=== PATIENT | female | born 1990 | race Caucasian/White ===

== ENCOUNTER 2016-11-18 17:31 | Emergency (ER) | payer OTHER ==
[~2016-11-18] VITALS: Ht 152.4 cm; Wt 55.0 kg
[~2016-11-18 17:31] MED LIST: NITR-58 PO; PHEN95TA29 PO
[2016-11-18 17:37] VITALS: Ht 152.4 cm; Wt 55.0 kg
[2016-11-18] MEDS ORDERED: BELLADONNA/PHENOBARBITAL TAB PO STA (17:54)
[2016-11-18] MEDS ORDERED: FAMOTIDINE 20 MG TAB PO STA (17:54)
[2016-11-18] MEDS ORDERED: LIDOCAINE/MYLANTA 40 ML BTL PO STA (17:54)
[2016-11-18] MEDS ORDERED: OXYCODONE/ACETAMINOPHEN (5/325) TAB PO ONE (18:00)
[2016-11-18] MEDS ORDERED: FAMO40TA52 PO (18:02)
[2016-11-18] MEDS ORDERED: OMEP40CA6 PO (18:02)
[2016-11-18] MEDS ORDERED: MAG355OR14 PO (18:02)
[2016-11-18 18:35] LABS: ADD UMIC YES; URINE BILIRUBIN (Dip) NEGATIVE (NEGATIVE); URINE BLOOD (Dip) NEGATIVE (NEGATIVE); URINE COLOR LT. YELLOW (YELLOW); URINE GLUCOSE (Dip) NEGATIVE (NEGATIVE); URINE KETONES (Dip) NEGATIVE (NEGATIVE); URINE LEUKOCYTE ESTERASE (Dip) TRACE (NEGATIVE); URINE NITRITE (Dip) NEGATIVE (NEGATIVE); URINE TOTAL PROTEIN (Dip) TRACE (NEGATIVE); URINE UROBILINOGEN (Dip) 0.2 E.U./dL (0.1-1.0)
[2016-11-18 19:04] LABS: BACTERIA,URINE FEW; SQUAMOUS EPITHELIAL CELL,UR MANY; URINE RBCS NONE SEEN /HPF (0)
--- NOTE | 2016-11-18 19:08 | ERD ---
ER Documentation Chief Complaint Date/Time DATE: 11/18/16 TIME: 19:08 Chief Complaint EPIGATRIC PAIN X 2 WEEKS HPI 26 otherwise healthy young woman presents with burning epigastric pain 2 weeks. She states pain precipitated by p.o. intake and radiates up to her throat. She denies fevers or chills, no dysuria, no chest pain or shortness of breath, no vomiting or diarrhea. Patient states she has a remote history of gastritis although denies using any medications at this time for her symptoms. ROS All systems reviewed and are negative except as per history of present illness. Medications Home Meds Active Scripts Omeprazole* (Omeprazole*) 40 Mg Capsule.dr, 40 MG PO DAILY, #30 CAP Prov:VANESSA RENO MD 11/18/16 Famotidine* (Famotidine*) 40 Mg Tablet, 40 MG PO HS, #30 TAB Prov:VANESSA RENO MD 11/18/16 Mag Hydrox/Al Hydrox/Simeth (Maalox Advanced Suspension) 355 Ml Oral.susp, 2 TSP PO TID for PAIN, #24 OZ Prov:VANESSA RENO MD 11/18/16 Phenazopyridine Hcl* (AZO*) 95 Mg Tablet, 95 MG PO TID, #20 TAB Prov:FAIZAN SPICER PA-C 12/13/15 Nitrofurantoin Monohyd Macrocr* (Macrobid*) 100 Mg Capsr, 100 MG PO BID for 7 Days, CAP Prov:FAIZAN SPICER PA-C 12/13/15 Allergies Allergies: Coded Allergies: No Known Allergy (Unverified , 05/27/14) PMhx/Soc Gastritis History of Surgery: Yes (APPENDECTOMY) Anesthesia Reaction: No Hx Neurological Disorder: No Hx Respiratory Disorders: No Hx Cardiac Disorders: No Hx Psychiatric Problems: No Hx Miscellaneous Medical Probl: No Hx Alcohol Use: Yes (SOCIALLY) Hx Substance Use: No Hx Tobacco Use: No Smoking Status: Never smoker FmHx Family History: No diabetes Physical Exam Vitals Vital Signs Date Time Temp Pulse Resp B/P Pulse Ox O2 Delivery O2 Flow Rate FiO2 11/18/16 17:37 97.9 71 18 137/83 99 Physical Exam GENERAL: Well-developed, well-nourished, well-hydrated, in no apparent distress , looks nontoxic in appearance HEENT: Moist mucous membranes, pink conjunctiva, no cervical spine tenderness or step-off deformities, no goiter, no jaundice or icterus, extraocular movements intact without pain. No submandibular induration, and no pharyngeal erythema NEURO: Alert and oriented 3, cranial nerves II through XII intact bilaterally, pupils equal round reactive to light, no focal deficits or facial asymmetry, sensation intact distally Strength 5/5 in upper and lower extremities bilaterally CARDIAC: Regular rate and rhythm, no murmurs rubs or gallops LUNGS: Clear bilaterally no wheezing crackles or stridor ABDOMEN: Soft nontender, no guarding, no rigidity, no rebound, no psoas sign no obturator sign. Normoactive bowel sounds SKIN: Warm and dry to touch, no abrasions, contusions, or hematomas, no lacerations, no ecchymosis, no target lesions, and without ulcers EXTREMITIES: No clubbing cyanosis or edema, calves are bilaterally symmetrical, no Homans sign, no popliteal cord sign. Distal pulses equal and bilateral PSYCH: Normal affect without agitation or irritability Results 24 hrs Laboratory Tests Test 11/18/16 18:00 Urine Color LT. YELLOW Urine Clarity SLIGHTLY CLOUDY Urine pH 8.5 Urine Specific [place] 1.015 Urine Ketones NEGATIVE Urine Nitrite NEGATIVE Urine Bilirubin NEGATIVE Urine Urobilinogen 0.2 E.U./dL Urine Leukocyte Esterase TRACE Urine Microscopic RBC NONE SEEN/HPF Urine Microscopic WBC >50/HPF Urine Squamous Epithelial Cells MANY Urine Bacteria FEW Urine Hemoglobin NEGATIVE Urine Glucose NEGATIVE% Urine Total Protein TRACE Current Medications Medications (Trade) Dose Ordered Sig/Inga Route PRN Reason Start Time Stop Time Status Last Admin Dose Admin Famotidine (Pepcid) 40 mg ONCE STAT PO 11/18/16 17:54 11/18/16 17:55 DC 11/18/16 18:12 Miscellaneous Medication (Gi Cocktail (2)) 40 ml ONCE STAT PO 11/18/16 17:54 11/18/16 17:55 DC 11/18/16 18:00 [place]/ Phenobarbital () 2 tab ONCE STAT PO 11/18/16 17:54 11/18/16 17:55 DC 11/18/16 18:12 Oxycodone/ Acetaminophen (Percocet (5/ 325)) 1 tab ONCE ONCE PO 11/18/16 18:00 11/18/16 18:01 DC 11/18/16 18:14 Procedures/MDM I administered Percocet 1 tablet p.o., GI cocktail 50 cc p.o., famotidine 40 mg p.o. with good response. test was negative and urine analysis was concerning for urinary tract infection. Differential diagnoses considered, included but not limited to acute coronary syndrome, pulmonary embolism, aortic dissection, abdominal aortic aneurysm, sepsis, stroke, meningitis, encephalitis, pneumonia, appendicitis, cholecystitis , bowel obstruction, pyelonephritis, nephrolithiasis, cystitis, as well as metabolic, hematologic, and electrolyte abnormalities. As well as abscess, cellulitis, fractures, and dislocations. Patient feels much better at this time, and vital signs are normal, symptoms have improved. I did give strict instructions to return to the ED if symptoms continue or worsen, patient will otherwise follow-up with primary care physician. Patient understood instructions and agreed to plan. Departure Diagnosis: Primary Impression: Gastritis Gastritis type: superficial Chronicity: acute Gastritis bleeding: without bleeding Qualified Code: K29.00 - Acute superficial gastritis without hemorrhage Additional Impression: UTI (urinary tract infection) Urinary tract infection type: acute cystitis Hematuria presence: without hematuria Qualified Code: N30.00 - Acute cystitis without hematuria Condition: Good Patient Instructions: Gastritis Vs. Ulcer Referrals: MARISOL BLAIR MD, DAVID MD Nov 18, 2016 19:08
== END 2016-11-18 19:23 | disposition home or self-care (01) ==
LOC: FTE 17:31
DX: K29.00 Acute gastritis without bleeding (principal); N30.00 Acute cystitis without hematuria
CPT/HCPCS: 36415; 81001; 81003; Z7502; Z7610; 99283

== ENCOUNTER 2017-03-05 17:37 | Emergency (ER) | payer OTHER ==
[~2017-03-05] VITALS: Wt 59.1 kg
[~2017-03-05 17:37] MED LIST changes: +FAMO40TA52 PO; +MAG355OR14 PO; +OMEP40CA6 PO
[2017-03-05] MEDS ORDERED: KETOROLAC 30 MG INJ IM STA (18:21)
[2017-03-05] MEDS ORDERED: HYDROCODONE/APAP (5/325) TAB PO ONE (18:30)
[2017-03-05 18:42] LABS: URINE BLOOD (Dip) POC Negative (NEGATIVE)
[2017-03-05] MEDS ORDERED: CYCL-319 PO (18:49)
[2017-03-05] MEDS ORDERED: IBUP-1542 PO (18:49)
--- NOTE | 2017-03-05 18:57 | ERD ---
ER Documentation Chief Complaint Date/Time DATE: 03/05/17 TIME: 18:52 Chief Complaint back pain HPI Patient is a 26-year-old female who presents to the emergency department for concerns of lower back pain which started 2 days ago. Patient states she was lifting heavy weights at the gym or to the start of her back pain. Pain is localized to the lumbar region does not radiate. Patient denies any falls or trauma. Patient denies any saddle anesthesia, urinary incontinence, stool incontinence, fevers, chills, recent history of cancer, dysuria, frequency, hematuria or flank pain. Patient reports taking ibuprofen with some alleviation of symptoms. Patient states her last menstrual period was on February 08, 2017. ROS All systems reviewed and are negative except as per history of present illness. Medications Home Meds Active Scripts Cyclobenzaprine Hcl* (Cyclobenzaprine Hcl*) 10 Mg Tablet, 10 MG PO TID, #15 TAB Prov:KEIRY FAITH PA-C 03/05/17 Ibuprofen* (Motrin*) 600 Mg Tab, 600 MG PO Q6, #20 TAB Prov:KEIRY FAITH PA-C 03/05/17 Omeprazole* (Omeprazole*) 40 Mg Capsule.dr, 40 MG PO DAILY, #30 CAP Prov:VANESSA RENO MD 11/18/16 Famotidine* (Famotidine*) 40 Mg Tablet, 40 MG PO HS, #30 TAB Prov:VANESSA RENO MD 11/18/16 Mag Hydrox/Al Hydrox/Simeth (Maalox Advanced Suspension) 355 Ml Oral.susp, 2 TSP PO TID for PAIN, #24 OZ Prov:VANESSA RENO MD 11/18/16 Phenazopyridine Hcl* (AZO*) 95 Mg Tablet, 95 MG PO TID, #20 TAB Prov:FAIZAN SPICER PA-C 12/13/15 Nitrofurantoin Monohyd Macrocr* (Macrobid*) 100 Mg Capsr, 100 MG PO BID for 7 Days, CAP Prov:FAIZAN SPICER PA-C 12/13/15 Allergies Allergies: Coded Allergies: No Known Allergy (Unverified , 05/27/14) PMhx/Soc Medical and Surgical Hx: pt denies Medical Hx History of Surgery: Yes (appendectomy) Anesthesia Reaction: No Hx Neurological Disorder: No Hx Respiratory Disorders: No Hx Cardiac Disorders: No Hx Psychiatric Problems: No Hx Miscellaneous Medical Probl: No Hx Alcohol Use: No Hx Substance Use: No Hx Tobacco Use: No Smoking Status: Never smoker FmHx Family History: No diabetes Physical Exam Vitals Vital Signs Date Time Temp Pulse Resp B/P Pulse Ox O2 Delivery O2 Flow Rate FiO2 03/05/17 19:06 98.7 74 20 138/70 100 Room Air 03/05/17 18:01 99.0 79 20 142/72 100 Physical Exam GENERAL: Well-developed, well-nourished female. Appears in pain. HEAD: Normocephalic, atraumatic. EYES: Pupils are equally reactive bilaterally. EOMs grossly intact. No conjunctival erythema. ENT: Moist mucous membranes. No uvula deviation. No kissing tonsils. NECK: Supple. No meningismus. Normal range of motion of the neck. LUNG: Clear to auscultation bilaterally. No rhonchi, wheezing, rales or coarse breath sounds. HEART: Regular rate and rhythm. No murmurs, rubs or gallops. BACK: No midline tenderness. Tender to palpation of bilateral lumbar paraspinalis muscle regions. Positive straight leg raise bilaterally. EXTREMITIES: Equal pulses bilaterally. No peripheral clubbing, cyanosis or edema. No unilateral leg swelling. NEUROLOGIC: Alert and oriented. Moving all four extremities without any difficulty. Normal speech. Steady gait. SKIN: Normal color. Warm and dry. No rashes or lesions. Results 24 hrs Laboratory Tests Test 03/05/17 18:47 Bedside Urine pH (LAB) 6.0 Bedside Urine Protein (LAB) Negative Bedside Urine Glucose (UA) Negative Bedside Urine Ketones (LAB) Negative Bedside Urine Blood Negative Bedside Urine Nitrite (LAB) Negative Bedside Urine Leukocyte Esterase (L Trace Current Medications Medications (Trade) Dose Ordered Sig/Inga Route PRN Reason Start Time Stop Time Status Last Admin Dose Admin Ketorolac Tromethamine (Toradol) 30 mg ONCE STAT IM 03/05/17 18:21 03/05/17 18:23 DC 03/05/17 18:47 Acetaminophen/ Hydrocodone Bitart ([place] (5/325)) 1 tab ONCE ONCE PO 03/05/17 18:30 03/05/17 18:31 DC 03/05/17 18:47 Procedures/MDM MEDICAL DECISION MAKING: This is a 26-year-old female who presents to the emergency department with lower back pain 2 days. Pain started after lifting heavy weights at the gym. Patient denies any trauma or falls. Vital signs were reviewed. Patient was afebrile. Patient denied any saddle anesthesia, urinary incontinence, bowel incontinence. Patient denies any fevers. Given the patient denied any falls or trauma, did not feel that x-ray imaging is indicated at this time. Urine test was negative. Urine dip showed trace leukocyte esterase. Given that patient denied any symptoms of dysuria, frequency, urgency or hematuria, I do not believe the patient has a UTI at this time. Given these findings, the patient's presentation is most consistent with lumbar strain. I have a much lower clinical concern for cauda equine syndrome, spinal fractures, epidural abscess, spinal metastases, osteomyelitis, aortic dissection, ruptured or leaking AA, DJD, muscle spasm, pyelonephritis or nephrolithiasis. PRESCRIPTIONS: Ibuprofen Flexeril, Patient was advised not to take this medication when operating any machinery or driving. DISCHARGE: At this time, patient is stable for discharge and outpatient management. RICE therapy and ROM exercises were advised to avoid stiffness. I have instructed the patient to follow-up with his/her primary care physician in 1-2 days. I have discussed with the patient the possibility of needing to see an [facility] specialist for further workup and imaging if the pain persists. I have instructed the patient to promptly return to the ER for any new or worsening symptoms including increased pain, swelling, warmth, urinary incontinence, stool incontinence, weakness or numbness. The patient and/or family expressed understanding of and agreement with this plan. All questions were answered. Home care instructions were provided. Patient's blood pressure was elevated (>120/80) but appears stable without evidence of hypertensive emergency, hypertensive urgency or end-organ failure. I had discussion with the patient about the risks of hypertension. I have advised the patient to follow up with his/her primary care physician for outpatient monitoring and treatment for hypertension in 2-3 days. I have instructed the patient to return to the ER for any new or worsening symptoms including chest pain, shortness of breath, headache, blurred vision, confusion, nausea, vomiting or LOC. Departure Diagnosis: Primary Impression: Back pain Back pain location: back pain in unspecified location Chronicity: unspecified Back pain laterality: bilateral Qualified Code: M54.9 - Bilateral back pain, unspecified back location, unspecified chronicity Condition: Stable Patient Instructions: Back Pain (Acute Or Chronic) Referrals: RODO MADRID (PCP) Additional Instructions: Call your primary care doctor TOMORROW for an appointment during the next 1-2 days.See the doctor sooner or return here if your condition worsens before your appointment time. Do not take Flexeril when operating any machinery or driving. KEIRY FAITH PA-C Mar 05, 2017 18:57
[2017-03-05 19:06] VITALS: BP 138/70; PULSE 74; RESP 20; TEMP 98.7
[2017-03-14 16:16] LABS: URINE BLOOD (Dip) POC Negative (NEGATIVE)
== END 2017-03-05 19:07 | disposition home or self-care (01) ==
LOC: FTE 17:37
DX: M54.5 Low back pain (principal)
CPT/HCPCS: 81003; J1885; Z7610; 96372

== ENCOUNTER 2017-10-30 14:47 | Emergency (ER) | END 2017-10-30 18:10 | disposition home or self-care (01) ==

== ENCOUNTER 2018-02-13 22:52 | Outpatient (CLI) | END 2018-02-14 06:54 | disposition home or self-care (01) ==

== ENCOUNTER 2018-02-16 09:22 | Outpatient (CLI) | END 2018-02-16 11:55 | disposition home or self-care (01) ==

== ENCOUNTER 2018-03-04 00:06 | Inpatient (IN) | END 2018-03-04 23:43 | disposition home or self-care (01) | DRG 782 ==

== ENCOUNTER 2018-04-02 18:13 | Outpatient (CLI) | END 2018-04-02 19:48 | disposition home or self-care (01) ==

== ENCOUNTER 2018-04-04 10:33 | Outpatient (CLI) | END 2018-04-04 14:10 | disposition home or self-care (01) ==

== ENCOUNTER 2018-04-06 17:30 | Outpatient (CLI) | END 2018-04-06 18:50 | disposition home or self-care (01) ==

== ENCOUNTER 2018-04-14 06:32 | Inpatient (IN) | END 2018-04-17 16:00 | disposition home or self-care (01) | DRG 775 ==

== ENCOUNTER 2018-08-24 05:15 | Emergency (ER) | payer MEDICAID ==
[~2018-08-24] VITALS: Ht 160 cm; Wt 66.5 kg
[~2018-08-24 05:15] MED LIST changes: -FAMO40TA52 PO; +FER325 PO; -MAG355OR14 PO; -NITR-58 PO; -OMEP40CA6 PO; -PHEN95TA29 PO; +PREN1TAB17 PO
[2018-08-24 05:16] VITALS: Ht 160 cm; Wt 66.5 kg
[2018-08-24] MEDS ORDERED: SOD CHLORIDE 0.9% 1,000 ML IV STA (06:18)
[2018-08-24] MEDS ORDERED: morphine 2 MG INJ IV STA (06:18)
[2018-08-24] MEDS ORDERED: ONDANSETRON 4 MG INJ IV STA (06:18)
[2018-08-24] MEDS ORDERED: CEPH-443 PO (07:59)
[2018-08-24] MEDS ORDERED: IBUP-1542 PO (07:59)
[2018-08-24 08:23] VITALS: BP 115/72; PULSE 60; RESP 18
--- NOTE | 2018-08-24 09:08 | ERD ---
ER Documentation Chief Complaint Chief Complaint left abdominal pain x 2 hours HPI This is a 27-year-old female with a nonsignificant past medical history presents ED with complaints of left lower pelvic pain times 2 hours prior to arrival in ED. Patient states the pain is constant but it waxes and wanes in severity. Patient rates pain at its worst at an 8 out of 10. Patient's last menstrual period was 12-13-18. Denies nausea, vomiting, hemoptysis, diarrhea, constipation, melena, hematochezia, rectal pain, pain with bowel movement, vaginal pain, vaginal bleeding, fever, chills, dysuria, hematuria, back pain and all other symptoms. No known drug allergies. History of having an appendectomy. ROS All systems reviewed and are negative except as per history of present illness. Medications Home Meds Active Scripts Ibuprofen* (Motrin*) 600 Mg Tab, 600 MG PO Q6, #30 TAB Prov:CARLOS JACKMAN PA-C 08/24/18 Cephalexin* (Keflex*) 500 Mg Capsule, 500 MG PO QID for 7 Days, CAP Prov:CARLOS JACKMAN PA-C 08/24/18 Reported Medications Vit-Iron Fumarate-FA ( Tablet) 1 Each Tablet, 1 TAB PO DAILY, TAB 10/30/17 Ferrous Sulfate* (Ferrous Sulfate*) 325 Mg Tabec, 325 MG PO DAILY, TAB 10/30/17 Allergies Allergies: Coded Allergies: No Known Allergy (Unverified , 08/24/18) PMhx/Soc History of Surgery: Yes (appendectomy) Anesthesia Reaction: No Hx Neurological Disorder: No Hx Respiratory Disorders: No Hx Cardiac Disorders: No Hx Psychiatric Problems: No Hx Miscellaneous Medical Probl: No Hx Alcohol Use: No Hx Substance Use: No Hx Tobacco Use: No Smoking Status: Never smoker FmHx Family History: No diabetes Physical Exam Vitals Vital Signs Date Temp Pulse Resp B/P (MAP) Pulse Ox O2 O2 Flow FiO2 Time Delivery Rate 08/24/18 98.1 60 18 115/72 99 Room Air 08:23 (86) 08/24/18 98.1 77 18 127/78 99 05:16 (94) Physical Exam Physical Exam Vitals signs: Reviewed by me. General: Well developed, well nourished, in no acute distress. Patient is awake and alert. Head: Normocephalic, atraumatic. Eyes: Normal conjunctiva, Pupils PERRLA, EOM intact grossly ENT: Pharynx is clear, Moist mucous membranes, external ears, nose and mouth normal Neck: Supple, no masses, lymphadenopathy or JVD Respiratory: Clear to auscultation bilaterally with no wheezing, rhonchi, rales, no distress Cardiovascular: RRR, no murmurs, rubs, or gallops Abdominal: Soft, nondistended, no peritoneal signs, no rigidity, no surgical abdomen, bowel sounds present all 4 quadrants, mild tenderness palpation in the left lower quadrant, nontender in all other quadrants, Bhandari sign negative, McBurney's point nontender, read no rebound tenderness : Deferred MSK: No edema, Back: No midline tenderness. No flank tenderness Neurologic: Alert and oriented, moving all extremities, normal speech, no focal weakness, no cerebellar signs. Normal mentation Skin: warm and dry, No rash Psych: Normal mood Result Diagram: 08/24/18 0640 08/24/18 0640 Results 24 hrs Laboratory Tests Test 08/24/18 06:37 08/24/18 06:40 POC Beta HCG, Qualitative NEGATIVE White Blood Count 8.1 10^3/ul Red Blood Count 4.43 10^6/ul Hemoglobin 13.4 g/dl Hematocrit 39.4 % Mean Corpuscular Volume 88.9 fl Mean Corpuscular Hemoglobin 30.2 pg Mean Corpuscular Hemoglobin Concent 34.0 g/dl Red Cell Distribution Width 12.8 % Platelet Count 281 10^3/UL Mean Platelet Volume 10.7 fl Immature Granulocytes % 0.500 % Neutrophils % 72.3 % Lymphocytes % 20.4 % Monocytes % 5.7 % Eosinophils % 0.7 % Basophils % 0.4 % Nucleated Red Blood Cells % 0.0 /100WBC Immature Granulocytes # 0.040 10^3/ul Neutrophils # 5.8 10^3/ul Lymphocytes # 1.7 10^3/ul Monocytes # 0.5 10^3/ul Eosinophils # 0.1 10^3/ul Basophils # 0.0 10^3/ul Nucleated Red Blood Cells # 0.0 10^3/ul Urine Color YELLOW Urine Clarity CLOUDY Urine pH 6.0 Urine Specific [place] 1.006 Urine Ketones NEGATIVE mg/dL Urine Nitrite NEGATIVE mg/dL Urine Bilirubin NEGATIVE mg/dL Urine Urobilinogen NEGATIVE mg/dL Urine Leukocyte Esterase 3+ Cordelia/ul Urine Microscopic RBC 8 /HPF Urine Microscopic WBC 15 /HPF Urine Squamous Epithelial Cells MODERATE /HPF Urine Bacteria FEW /HPF Urine Hemoglobin 1+ mg/dL Urine Glucose NEGATIVE mg/dL Urine Total Protein NEGATIVE mg/dl Sodium Level 142 mmol/L Potassium Level 3.7 mmol/L Chloride Level 106 mmol/L Carbon Dioxide Level 26 mmol/L Anion Gap 10 Blood Urea Nitrogen 11 mg/dl Creatinine 0.63 mg/dl Est Glomerular Filtrat Rate mL/min > 60 mL/min Glucose Level 96 mg/dl Calcium Level 9.6 mg/dl Total Bilirubin 0.3 mg/dl Direct Bilirubin 0.00 mg/dl Indirect Bilirubin 0.3 mg/dl Aspartate Amino Transf (AST/SGOT) 23 IU/L Alanine Aminotransferase (ALT/SGPT) 14 IU/L Alkaline Phosphatase 53 IU/L Total Protein 8.8 g/dl Albumin 4.8 g/dl Globulin 4.00 g/dl Albumin/Globulin Ratio 1.20 Lipase 53 U/L Current Medications Medications Dose Sig/Inga Start Time Status Last (Trade) Ordered Route PRN Stop Time Admin Dose Reason Admin Sodium 1,000 ml @ Q1H STAT 08/24/18 DC 08/24/18 Chloride 1,000 mls/hr IV 06:18 08/24/18 06:41 07:17 Morphine 6 mg ONCE STAT 08/24/18 DC 08/24/18 Sulfate IV 06:18 08/24/18 06:41 (morphine) 06:22 Ondansetron 4 mg ONCE STAT 08/24/18 DC 08/24/18 HCl (Zofran IV 06:18 08/24/18 06:41 Inj) 06:22 Procedures/MDM EKG, MONITORS, & DIAGNOSTIC IMAGING: [place] [address] Radiology Main Line: [phone] DIAGNOSTIC IMAGING REPORT Patient: MORGAN SIMS : 1990 Age: 27 Sex: F MR #: [id number] DOS: 08/24/18617 Ordering MD: CARLOS JACKMAN PA-C Location: [facility] Room/Bed: PROCEDURE: CT Abdomen and pelvis without contrast. CLINICAL INDICATION: Abdominal pain TECHNIQUE: CT scan of the abdomen and pelvis without contrast was performed on a multidetector high-resolution CT scan. . Coronal and sagittal reformatted images were obtained from the axial source images. Standard CT scan of the abdomen pelvis without contrast protocols were performed. The total exam CTDI equals 9.01 mGy and the total exam DLP equals 516.37 mGy-cm. One or more of the following dose reduction techniques were used: - Automated exposure control. - Adjustment of the mA and/or kV according to patient size. Use of iterative reconstruction technique. Dicom images are available COMPARISON: Pelvic ultrasound same day FINDINGS: There is a small amount of free fluid in the cul-de-sac. No other intra- abdominal free fluid free air or abscess. No abdominal pelvic lymphadenopathy. Questionable circumferential wall thickening of the distal rectum may be due to lack of optimal distension however a proctitis cannot be totally excluded. Moderate stool burden throughout the colon which is otherwise unremarkable. No evidence of diverticulitis. A definite appendix is not visualized however no CT evidence of appendicitis. Stomach and small bowel unremarkable. Kidneys are normal in size without calcified calculi, hydronephrosis or intra renal masses bilaterally. No ureteral calcified calculi or dilatation. Urinary bladder appears unremarkable. Uterus appears anteverted and globular in mariana earance but no definite focal lesion demonstrated. Pelvic ultrasound demonstrated a 1.3 cm left ovarian cyst. No other adnexal masses. Liver spleen pancreas adrenal glands and gallbladder unremarkable. No evidence biliary ductal dilation. Mild bibasilar subsegmental atelectasis. Aorta unremarkable. Abdominal pelvic wall unremarkable. Osseous structures unremarkable without acute osseous findin gs are osteoblastic/osteolytic lesions. IMPRESSION: 1. Questionable circumferential wall thickening of the distal rectum may be due to lack of optimal distension however proctitis cannot be excluded. Moderate stool burden throughout the colon. Colon is otherwise unremarkable. 2. Appendix not visualized however no CT evidence of appendicitis. 3. No calcified urinary calculi or obstructive uropathy. 4. Globular prominent uterus but no definite focal lesion demonstrated. Low density in the left adnexa consistent with 1.3 cm left ovarian cyst demonstrated on pelvic ultrasound same day. 5. Small free fluid in the cul-de-sac. No abscess free air or lymphadenopathy. RPTAT:AAJJ Physician Irma Date Time Electronically viewed and signed by Physician Irma on 08/24/2018 07:40 BM/ CC: CARLOS JACKMAN PA-C [id number] [place] [address] Radiology Main Line: [phone] DIAGNOSTIC IMAGING REPORT Patient: MORGAN SIMS : 1990 Age: 27 Sex: F MR #: [id number] DOS: 08/24/18 0618 Ordering MD: CARLOS JACKMAN PA-C Location: [facility] Room/Bed: PROCEDURE: Pelvic ultrasound color-flow Doppler of the adnexa. CLINICAL INDICATION: Pelvic Pain (Non ) rule out torsion, abscess TECHNIQUE: Multiple sagittal, oblique and transverse real time images were obtained of the lower abdomen and pelvis using a transabdominal as well a transvaginal approach. Color-flow Doppler of the adnexa was performed. COMPARISON: None. FINDINGS: The uterus is normal limits in size measuring 7.67 x 6.17 x 5.31 cm. Myometrial echoes are heterogeneous however no definite focal lesions demonstrated. Diffuse thickened homogeneous endometrium a without focal lesion maximal AP diameter 2.41 cm. Findings may all represent menstrual changes. Recommend clinical correlation. The ovaries are normal in size with the right measuring 2.38 x 1.60 x 1.73 cm and the left measuring 3.38 x 2.76 x 2.29 cm. Within the left ovary is a 1.33 cm cyst. No other ovarian masses. There is flow to both ovaries without ultrasonic evidence of ovarian torsion. Small free fluid in the cul-de-sac. No adnexal masses. IMPRESSION: 1. Normal size ovaries without ultrasonic evidence of ovarian torsion. 2. Left ovarian 1.33 cm cyst. 3. Small free fluid in the cul-de-sac. 4. Normal size uterus with heterogeneous myometrial echoes but no definite focal lesion. Diffuse thickened homogeneous endometrium maximal AP diameter 2.4 cm may all represent menstrual changes. Recommend clinical correlation follow-up as clinically indicated. RPTAT:AAJJ Physician Irma Date Time Electronically viewed and signed by Physician Irma on 08/24/2018 07:42 BM/ CC: CARLOS JACKMAN PA-C [id number] LAB INTERPRETATION: CBC shows no evidence of hemorrhage or infection Chemistry shows no evidence of significant electrolyte abnormalities or renal insufficiency Liver function test shows no evidence of acute biliary or hepatic dysfunction Lipase shows no evidence of acute pancreatitis Urine negative Urinalysis remarkable for leukocyte esterase 3 +, microscopic RBC, microscopic WBC ER COURSE: The patient was given IV normal saline, morphine, Zofran The medication was well tolerated and the patient reports improvement in symptoms. The patient was stable throughout ED course. I kept the patient and/or family informed of laboratory and diagnostic imaging results throughout the emergency room course. The patient was promptly evaluated and a treatment plan was devised based on H&P and other data. This plan was discussed with the patient who agreed and had no further questions or concerns prior to discharge. MEDICAL DECISION MAKING: Non- woman presenting with abdominal pain. test is negative. Considered causes of female-specific abdominal pain including pelvic inflammatory disease, tubo-ovarian abscess, Bljt-Zzhl-Inygey, and ovarian torsion. Also considered causes of abdominal pain that are not gender-specific (e.g., appendicitis, volvulus, small bowel obstruction, mesenteric adenitis, acute cholecystitis/choledocholithiasis and other biliary pathology, etc.). Patient well-appearing with normal vital signs. No peritoneal signs and abdomen benign on multiple repeat examinations. Pt well hydrated. Patient's urinalysis is remarkable for leukocyte Estrace 3+, RBC and WBC. It is possible that the patient's lower pelvic discomfort could be due to a UTI. Will treat patient for UTI. The CT of the abdomen and pelvis shows some constipation as well as a left ovarian cyst. it is also possible that patient's lower pelvic discomfort could be due to a ovarian cyst. Ultrasound of the abdomen and pelvis also shows a left ovarian cyst and some small free fluid in the cul-de-sac. The uterus also appears to have menstrual changes and patient is about to start menses. I believe the patient's left lower pelvic discomfort is due to ovarian cyst and UTI. At this time there is no evidence of gastrointestinal or genitourinary emergency. No evidence of appendicitis, cholecystitis, small bowel obstruction, perforated viscus, tubo-ovarian abscess, ovarian torsion, ectopic , PID, obstructive pyelonephritis, sepsis, and others. Patient given strict return precautions for worsening pain, inability to eat/drink, fevers (temperature over 100.4F), or other concerns. Prior to discharge all questions answered. She agrees with treatment plan and understands strict return precautions. Follow-up for repeat abdominal exam within 12 hours. DISPOSITION PLAN: We discussed follow up with the patient's primary care doctor within 24 to 48 hours. Patient counseled regarding my diagnostic impression and care plan. Prior to discharge all questions answered. Pt agrees with treatment plan and understands strict return precautions. Precautionary instructions provided including instructions to return to the ER if not improving or for any worsening or changing symptoms or concerns. SPECIALIST FOLLOW UP RECOMMENDED: None Patient has been advised to follow up with primary care in 1-2 days. Disclaimer: Inadvertent spelling and grammatical errors are likely due to EHR/dictation software use and do not reflect on the overall quality of patient care. Also, please note that the electronic time recorded on this note does not necessarily reflect the actual time of the patient encounter. Departure Diagnosis: Primary Impression: UTI (urinary tract infection) Urinary tract infection type: site unspecified Hematuria presence: without hematuria Qualified Codes: N39.0 - Urinary tract infection, site not specified Additional Impressions: Pelvic pain Left ovarian cyst Condition: Stable Patient Instructions: What Are Ovarian Cysts?, Understanding Urinary Tract Infections (UTIs), Pelvic Pain, Unknown Cause, Mid-Cycle Pain (Mittelschmerz) Additional Instructions: Patient advised to return to the ED immediately for new or worsening symptoms. Patient advised to follow up with primary care provider in the next 24-48 hours. Patient verbalized understanding and agrees with treatment plan and course of action. If patient has no primary care they may follow up with one of the community clinics listed on the following page or one of the options listed below [facility] + [facility] [address] [place] [id number] or [facility] [address] [place] [address] or [facility] [address] [place] [address] CARLOS JACKMAN PA-C Aug 24, 2018 09:08
== END 2018-08-24 08:25 | disposition home or self-care (01) ==
LOC: FTE 05:15
DX: N39.0 Urinary tract infection, site not specified (principal); N83.202 Unspecified ovarian cyst, left side; R10.2 Pelvic and perineal pain
CPT/HCPCS: 36415; 74176; 76830; 76856; 80053; 81001; 81025; 83690; 85025; 96361; 96374; 96375; J2270; J2405; J7030; Z7502

== ENCOUNTER 2018-09-04 10:22 | Emergency (ER) | payer MEDICAID ==
[~2018-09-04] VITALS: Ht 160 cm; Wt 64.5 kg
[~2018-09-04 10:22] MED LIST changes: +CEPH-443 PO; +IBUP-1542 PO
[2018-09-04 10:24] VITALS: Ht 160 cm; Wt 64.5 kg
[2018-09-04] MEDS ORDERED: KETOROLAC 30 MG INJ IV STA (11:15)
[2018-09-04] MEDS ORDERED: SOD CHLORIDE 0.9% 1,000 ML IV STA (11:15)
[2018-09-04] MEDS ORDERED: ONDANSETRON 4 MG INJ IV STA (11:15)
[2018-09-04] MEDS ORDERED: CIPR500T4 PO (12:46)
[2018-09-04] MEDS ORDERED: HYDR-4011 PO (12:46)
--- NOTE | 2018-09-04 14:28 | ERD ---
ER Documentation Chief Complaint Chief Complaint pt is bib family with c/o lower abd pain, dx with ovarian cyst PMD not avai HPI 27-year-old female presenting with lower abdominal pain. Patient states she was here 2 weeks ago discharged with ibuprofen and told she had ovarian cyst. Patient states the pain is persisted. Denies other medical problems. Denies vomiting. Denies fever. Denies back pain. NKDA. Surgical history is appendectomy. Social history denies ROS All systems reviewed and are negative except as per history of present illness. Medications Home Meds Active Scripts Hydrocodone/Acetaminophen ([place] 5-325 Tablet) 1 Each Tablet, 1 TAB PO Q6H PRN for PAIN, #7 TAB Prov:ROSELYN ALCANTAR PA-C 09/04/18 Ciprofloxacin Hcl* (Ciprofloxacin Hcl*) 500 Mg Tablet, 500 MG PO BID for 7 Days, TAB Prov:ROSELYN ALCANTAR PA-C 09/04/18 Ibuprofen* (Motrin*) 600 Mg Tab, 600 MG PO Q6, #30 TAB Prov:CARLOS JACKMAN PA-C 08/24/18 Cephalexin* (Keflex*) 500 Mg Capsule, 500 MG PO QID for 7 Days, CAP Prov:CARLOS JACKMAN PA-C 08/24/18 Reported Medications Vit-Iron Fumarate-FA ( Tablet) 1 Each Tablet, 1 TAB PO DAILY, TAB 10/30/17 Ferrous Sulfate* (Ferrous Sulfate*) 325 Mg Tabec, 325 MG PO DAILY, TAB 10/30/17 Allergies Allergies: Coded Allergies: No Known Allergy (Unverified , 08/24/18) PMhx/Soc History of Surgery: Yes (appendectomy) Anesthesia Reaction: No Hx Neurological Disorder: No Hx Respiratory Disorders: No Hx Cardiac Disorders: No Hx Psychiatric Problems: No Hx Miscellaneous Medical Probl: No Hx Alcohol Use: No Hx Substance Use: No Hx Tobacco Use: No Smoking Status: Never smoker FmHx Family History: No diabetes, No coronary disease, No other Physical Exam Vitals Vital Signs Date Temp Pulse Resp B/P (MAP) Pulse Ox O2 O2 Flow FiO2 Time Delivery Rate 09/04/18 98.5 79 16 126/74 99 10:24 (91) Physical Exam GENERAL: The patient is well-appearing, well-nourished, in no acute distress CHEST: Clear to auscultation bilaterally. There are no rales, wheezes or rhonchi. HEART: Regular rate and rhythm. No murmurs, clicks, rubs or gallops. No S3 or S4. ABDOMEN: Normal active bowel sounds. No distention. No organomegaly. Tender to palpation diffusely over abdomen with no rebound tenderness and no organomegaly. BACK: No midline or flank tenderness. Result Diagram: 09/04/18 1138 09/04/18 1138 Results 24 hrs Laboratory Tests Test 09/04/18 11:34 09/04/18 11:38 POC Beta HCG, Qualitative NEGATIVE White Blood Count 5.7 10^3/ul Red Blood Count 4.62 10^6/ul Hemoglobin 13.9 g/dl Hematocrit 41.5 % Mean Corpuscular Volume 89.8 fl Mean Corpuscular Hemoglobin 30.1 pg Mean Corpuscular Hemoglobin Concent 33.5 g/dl Red Cell Distribution Width 12.4 % Platelet Count 289 10^3/UL Mean Platelet Volume 10.9 fl Immature Granulocytes % 0.400 % Neutrophils % 68.0 % Lymphocytes % 24.6 % Monocytes % 5.8 % Eosinophils % 0.7 % Basophils % 0.5 % Nucleated Red Blood Cells % 0.0 /100WBC Immature Granulocytes # 0.020 10^3/ul Neutrophils # 3.9 10^3/ul Lymphocytes # 1.4 10^3/ul Monocytes # 0.3 10^3/ul Eosinophils # 0.0 10^3/ul Basophils # 0.0 10^3/ul Nucleated Red Blood Cells # 0.0 10^3/ul Urine Color YELLOW Urine Clarity SLIGHTLY CLOUDY Urine pH 5.0 Urine Specific [place] 1.027 Urine Ketones NEGATIVE mg/dL Urine Nitrite NEGATIVE mg/dL Urine Bilirubin NEGATIVE mg/dL Urine Urobilinogen NEGATIVE mg/dL Urine Leukocyte Esterase 2+ Cordelia/ul Urine Microscopic RBC 2 /HPF Urine Microscopic WBC 20 /HPF Urine Squamous Epithelial Cells FEW /HPF Urine Bacteria FEW /HPF Urine Mucus FEW /HPF Urine Hemoglobin 2+ mg/dL Urine Glucose NEGATIVE mg/dL Urine Total Protein NEGATIVE mg/dl Sodium Level 139 mmol/L Potassium Level 3.7 mmol/L Chloride Level 104 mmol/L Carbon Dioxide Level 26 mmol/L Anion Gap 9 Blood Urea Nitrogen 9 mg/dl Creatinine 0.69 mg/dl Est Glomerular Filtrat Rate mL/min > 60 mL/min Glucose Level 90 mg/dl Calcium Level 9.8 mg/dl Total Bilirubin 0.3 mg/dl Direct Bilirubin 0.00 mg/dl Indirect Bilirubin 0.3 mg/dl Aspartate Amino Transf (AST/SGOT) 20 IU/L Alanine Aminotransferase (ALT/SGPT) 13 IU/L Alkaline Phosphatase 57 IU/L Total Protein 9.1 g/dl Albumin 5.0 g/dl Globulin 4.10 g/dl Albumin/Globulin Ratio 1.21 Lipase 49 U/L Current Medications Medications Dose Sig/Inga Start Time Status Last (Trade) Ordered Route PRN Stop Time Admin Dose Reason Admin Sodium 1,000 ml @ Q1H STAT 09/04/18 DC 09/04/18 Chloride 1,000 mls/hr IV 11:15 11:47 09/04/18 12:14 Ondansetron 4 mg ONCE STAT 09/04/18 DC 09/04/18 HCl (Zofran IV 11:15 11:44 Inj) 09/04/18 11:16 Ketorolac 30 mg ONCE STAT 09/04/18 DC 09/04/18 Tromethamine IV 11:15 11:44 (Toradol) 09/04/18 11:16 Procedures/MDM DIAGNOSTIC IMAGING REPORT Patient: MORGAN SIMS : 1990 Age: 27 Sex: F MR #: [id number] DOS: 09/04/18 1115 Ordering MD: KASSANDRA ALCANTAR PA-C [facility] Room/Bed: AMENDMENT: 09/04/2018 12:28:20 PM Farooq Mahoney PROCEDURE: CT ABDOMEN AND PELVIS WITHOUT CONTRAST. CLINICAL INDICATION: Abdominal pain ovarian cyst TECHNIQUE: CT scan of the abdomen and pelvis without contrast was performed on a multidetector high-resolution CT scanner. The patient was scanned without intravenous contrast. Coronal and sagittal reformatted images were obtained from the axial source images. Images were reviewed on a high-resolution PACS workstation. The total exam CTDI equals 6.5 mGy and the total exam DLP equals 367.2 mGy-cm. One or more of the following dose reduction techniques were used: Automated exposure control. Adjustment of the mA and/or kV according to patient size. Use of iterative reconstruction technique. DICOM images are available COMPARISON: CT 08/24/2018 FINDINGS: CT abdomen: The lung bases are clear. The heart size is within normal limits. There is no significant pericardial effusion. Hepatic morphology is within normal limits. No gross contour deforming masses. The gallbladder is within normal limits. No evidence of intrahepatic or extrahepatic biliary dilatation. The spleen and pancreas are within normal limits. Both adrenal glands are within normal limits. Both kidneys are in normal anatomic position. No evidence of obstruction or hydronephrosis. No gross renal/ureteric calculi. The visualized GI tract demonstrate normal caliber loops of small and large bowel. No evidence of bowel obstruction. Stool filled loops of large bowel suggestive of constipation. Several right lower quadrant mesenteric lymph nodes are noted. The unenhanced aorta is unremarkable. No significant retroperitoneal lymphadenopathy. CT pelvis: The bladder is within normal limits. Uterus is identified with fluid with endometrial canal. There are normal appearing bilateral adnexa. Rectosigmoid colon demonstrates stool. No significant free fluid. No significant pelvic lymphadenopathy. The visualized osseous structures, appears to be within normal limits. IMPRESSION: 1. No evidence of acute intra-abdominal/pelvic inflammatory process. No evidence of bowel obstruction. The appendix is not clearly identified, however there is no inflammatory changes within the right lower quadrant. 2. Several right lower quadrant mesenteric lymph nodes which may represent mild mesenteric lymphadenitis. 3. Uterus is identified with fluid in the endometrial canal and normal ovaries. 4. No evidence of free fluid or free air. No gross focal fluid collections. RPTAT: AAPP PROCEDURE: CT ABDOMEN AND PELVIS WITHOUT CONTRAST. CLINICAL INDICATION: Abdominal pain ovarian cyst TECHNIQUE: CT scan of the abdomen and pelvis without contrast was performed on a multidetector high-resolution CT scanner. The patient was scanned without intr avenous contrast. Coronal and sagittal reformatted images were obtained from the axial source images. Images were reviewed on a high-resolution PACS workstation. The total exam CTDI equals 6.5 mGy and the total exam DLP equals 367.2 mGy-cm. One or more of the following dose reduction techniques were used: Automated exposure control. Adjustment of the mA and/or kV according to patient size. Use of iterative reconstruction technique. DICOM images are available COMPARISON: CT 08/24/2018 FINDINGS: CT abdomen: The lung bases are clear. The heart size is within normal limits. There is no significant pericardial effusion. Hepatic morphology is within normal limits. No gross contour deforming masses. The gallbladder is within normal limits. No evidence of intrahepatic or extrahepatic biliary dilatation. The spleen and pancreas are within normal limits. Both adrenal glands are within normal limits. Both kidneys are in normal anatomic position. No evidence of obstruction or hydronephrosis. No gross renal/ureteric calculi. The visualized GI tract demonstrate normal caliber loops of small and large bowel. No evidence of bowel obstruction. Stool filled loops of large bowel suggestive of constipation. Several right lower quadrant mesenteric lymph nodes are noted. The unenhanced aorta is unremarkable. No significant retroperitoneal lymphadenopathy. CT pelvis: The bladder is within normal limits. Uterus is identified with fluid with endometrial canal. There are small bilateral ovarian cysts. Rectosigmoid colon demonstrates stool. No significant free fluid. No significant pelvic lymphadenopathy. The visualized osseous structures, appears to be within normal limits. IMPRESSION: 1. No evidence of acute intra-abdominal/pelvic inflammatory process. No evidence of obstruction. The appendix is not clearly identified, however there is no inflammatory changes within the right lower quadrant. 2. Several right lower quadrant mesenteric lymph nodes which may represent mild mesenteric lymphadenitis. 3. Uterus is identified with fluid in the endometrial canal and small bilateral ovarian cysts. 4. No evidence of free fluid or free air. No gross focal fluid collections. DIAGNOSTIC IMAGING REPORT Patient: MORGAN SIMS : 1990 Age: 27 Sex: F MR #: [id number] DOS: 09/04/18 0000 Ordering MD: KASSANDRA ALCANTAR PA-C Location: [facility] Room/Bed: PROCEDURE: US Pelvis. CLINICAL INDICATION: Pelvic pain TECHNIQUE: Multiple sonographic images of the pelvis were obtained utilizing a transabdominal and endovaginal technique. The images were reviewed on a PACS workstation. COMPARISON: None. FINDINGS: The uterus is visualized and measures 6.7 x 3.9 x 5.4 cm. The endometrial echo complex is normal and measures 3.9 mm. There is no evidence for free fluid. The right ovary has a normal echotexture and measures 3.4 x 2.7 x 2.3 cm . The left ovary has a normal echotexture and measures 3.1 x 1.4 x 2.2 cm. No adnexal masses are noted. IMPRESSION: 1. Uterus and endometrial stripe are within normal limits. 2. Both ovaries are within normal limits. No gross adnexal masses. No evidence of torsion. No significant free fluid. 3. Unremarkable ultrasound of the pelvis.. MDM: 7-year-old female presenting with abdominal pain. I have low suspicion for acute abdominal emergency. Patient's pain is likely associated with mesenteric adenitis and viral etiology. She does have a UTI will be treated with antibiotics. I have low suspicion for appendicitis or other acute abdominal emergencies. I have low suspicion for pelvic abnormalities. Urine negative. Patient is discharged stricter precautions and told to follow-up with primary care within 1-2 days for close evaluation. Patient is told if symptoms change or worsen to return immediately to the ER. All questions answered at discharge Departure Diagnosis: Primary Impression: Abdominal pain Additional Impression: UTI (urinary tract infection) Condition: Stable Patient Instructions: Abdominal Pain, Understanding Urinary Tract Infections (UTIs) Referrals: [facility] PROM[facility] HUTCHINSON (PCP) Additional Instructions: FOLLOW UP WITH YOUR PRIMARY CARE PHYSICIAN TOMORROW.Return to this facility if you are not improving as expected. ROSELYN ALCANTAR PA-C Sep 04, 2018 14:28
== END 2018-09-04 13:08 | disposition home or self-care (01) ==
LOC: FTE 10:22
DX: N39.0 Urinary tract infection, site not specified (principal); R10.2 Pelvic and perineal pain
CPT/HCPCS: 36415; 74176; 76856; 80053; 81001; 81025; 83690; 85025; 96361; 96374; 96375; J1885; J2405; J7030; Z7502

== ENCOUNTER 2019-02-08 21:46 | Emergency (ER) | payer MEDICAID, OTHER ==
[~2019-02-08] VITALS: Ht 160 cm; Wt 61.4 kg
[~2019-02-08 21:46] MED LIST changes: +CIPR500T4 PO; +HYDR-4011 PO
[2019-02-08 21:47] VITALS: Ht 160 cm; Wt 61.4 kg
[2019-02-09] MEDS ORDERED: DICYCLOMINE 20 MG INJ IM ONE (01:00)
[2019-02-09] MEDS ORDERED: ACET-141 PO (02:28)
[2019-02-09 02:57] VITALS: BP 119/63; PULSE 61; RESP 18
--- NOTE | 2019-02-09 03:09 | ERD ---
ER Documentation Chief Complaint Chief Complaint AP X'S 6 DAYS HPI 28-year-old female presenting with intermittent abdominal cramping for the past 5 days. She initially had associated diarrhea. Now she is having harder bowel movements and feeling bloating. The pain is a cramping, intermittent, in the lower abdomen, with no alleviating or exacerbating factors. She denies any associated nausea, vomiting, fever, chills. No dysuria or hematuria. ROS All systems reviewed and are negative except as per history of present illness. Medications Home Meds Reported Medications Acetaminophen* (Acetaminophen*) 500 MG Extra Strength Tablet, 500 MG PO Q4H PRN for PAIN AND OR ELEVATED TEMP, TAB 02/09/19 Discontinued Reported Medications Vit-Iron Fumarate-FA ( Tablet) 1 Each Tablet, 1 TAB PO DAILY, TAB 10/30/17 Ferrous Sulfate* (Ferrous Sulfate*) 325 Mg Tabec, 325 MG PO DAILY, TAB 10/30/17 Discontinued Scripts Hydrocodone/Acetaminophen ([place] 5-325 Tablet) 1 Each Tablet, 1 TAB PO Q6H PRN for PAIN, #7 TAB Prov:ROSELYN ALCANTAR PA-C 09/04/18 Ciprofloxacin Hcl* (Ciprofloxacin Hcl*) 500 Mg Tablet, 500 MG PO BID for 7 Days, TAB Prov:ROSELYN ALCANTAR PA-C 09/04/18 Ibuprofen* (Motrin*) 600 Mg Tab, 600 MG PO Q6, #30 TAB Prov:CARLOS JACKMAN PA-C 08/24/18 Cephalexin* (Keflex*) 500 Mg Capsule, 500 MG PO QID for 7 Days, CAP Prov:CARLOS JACKMAN PA-C 08/24/18 Allergies Allergies: Coded Allergies: No Known Allergy (Unverified , 02/09/19) PMhx/Soc History of Surgery: Yes (appendectomy) Anesthesia Reaction: No Hx Neurological Disorder: No Hx Respiratory Disorders: No Hx Cardiac Disorders: No Hx Psychiatric Problems: No Hx Miscellaneous Medical Probl: No Hx Alcohol Use: No Hx Substance Use: No Hx Tobacco Use: No Smoking Status: Never smoker FmHx Family History: No diabetes Physical Exam Vitals Vital Signs Date Temp Pulse Resp B/P (MAP) Pulse Ox O2 O2 Flow FiO2 Time Delivery Rate 02/09/19 98.9 61 18 119/63 100 Room Air 02:57 (81) 6/26/19 63 14 104/72 18 Room Air 02:30 (83) 02/09/19 60 16 109/76 18 Room Air 00:15 (87) 02/08/19 99.1 78 18 128/77 98 21:47 (94) Physical Exam Const: No acute distress Head: Atraumatic Eyes: Normal Conjunctiva ENT: Normal External Ears, Nose and Mouth. Neck: Full range of motion. No meningismus. Resp: Clear to auscultation bilaterally Cardio: Regular rate and rhythm, no murmurs Abd: Soft, non tender, non distended. Hyperactive bowel sounds Skin: No petechiae or rashes Back: No midline or flank tenderness Ext: No cyanosis, or edema Neur: Awake and alert Psych: Normal Mood and Affect Result Diagram: 02/09/19 0120 02/09/19 0120 Results 24 hrs Laboratory Tests Test 02/09/19 00:31 02/09/19 01:20 02/09/19 01:30 Urine Color STRAW Urine Clarity CLEAR Urine pH 6.0 Urine Specific [place] 1.006 Urine Ketones TRACE mg/dL Urine Nitrite NEGATIVE mg/dL Urine Bilirubin NEGATIVE mg/dL Urine Urobilinogen NEGATIVE mg/dL Urine Leukocyte Esterase NEGATIVE Cordelia/ul Urine Hemoglobin NEGATIVE mg/dL Urine Glucose NEGATIVE mg/dL Urine Total Protein NEGATIVE mg/dl White Blood Count 7.5 10^3/ul Red Blood Count 4.22 10^6/ul Hemoglobin 12.4 g/dl Hematocrit 37.4 % Mean Corpuscular Volume 88.6 fl Mean Corpuscular Hemoglobin 29.4 pg Mean Corpuscular 33.2 g/dl Hemoglobin Concent Red Cell Distribution Width 13.2 % Platelet Count 241 10^3/UL Mean Platelet Volume 11.0 fl Immature Granulocytes % 0.400 % Neutrophils % 61.5 % Lymphocytes % 27.8 % Monocytes % 7.5 % Eosinophils % 2.3 % Basophils % 0.5 % Nucleated Red Blood Cells % 0.0 /100WBC Immature Granulocytes # 0.030 10^3/ul Neutrophils # 4.6 10^3/ul Lymphocytes # 2.1 10^3/ul Monocytes # 0.6 10^3/ul Eosinophils # 0.2 10^3/ul Basophils # 0.0 10^3/ul Nucleated Red Blood Cells # 0.0 10^3/ul Sodium Level 142 mmol/L Potassium Level 4.4 mmol/L Chloride Level 105 mmol/L Carbon Dioxide Level 26 mmol/L Anion Gap 11 Blood Urea Nitrogen 8 mg/dl Creatinine 0.69 mg/dl Est Glomerular Filtrat > 60 mL/min Rate mL/min Glucose Level 91 mg/dl Calcium Level 9.6 mg/dl POC Beta HCG, Qualitative NEGATIVE Current Medications Medications Dose Sig/Inga Start Time Status Last (Trade) Ordered Route PRN Stop Time Admin Dose Reason Admin Dicyclomine 20 mg ONCE ONCE 02/09/19 DC 02/09/19 HCl IM 01:00 01:25 (Bentyl) 02/09/19 01:02 Procedures/MDM EMERGENT LABS AND DIAGNOSTIC STUDIES: Lab Results above were reviewed and interpreted by me. CBC: no anemia or evidence of infection BMP: [no e/o clinically significant electrolyte abnormality severe acidosis, alkalosis, renal failure, diabetic ketoacidosis] UA: no evidence of infection negative Radiology Results as interpreted by Radiology below were reviewed by Mason Puri MD: XR abdomen KUB shows no acute abnormalities Initial Nursing notes reviewed. Previous Medical Records requested via the Electronic Health Record. EMERGENCY DEPARTMENT COURSE / MEDICAL DECISION MAKING: Patient is presenting with abdominal cramping status post a diarrheal illness now with complaints of constipation. She is afebrile with stable vitals. There is no evidence of acute surgical abdomen on exam. Labs show no significant abnormalities. I do not feel any imaging is indicated at this time. She was treated with Bentyl with improvement of her symptoms. Patient will be discharged with return precautions. Departure Diagnosis: Primary Impression: Abdominal cramping Condition: Stable Patient Instructions: Abdominal Pain Additional Instructions: Return to the ER for any worsening symptoms. JACLYN PURI MD Feb 09, 2019 03:09
== END 2019-02-09 02:57 | disposition home or self-care (01) ==
LOC: E/R 21:46
DX: R10.30 Lower abdominal pain, unspecified (principal)
CPT/HCPCS: 36415; 74018; 80048; 81003; 81025; 85025; 96372; J0500; Z7502